=== PATIENT | male | born 1960 | race Hispanic/Latino ===

== ENCOUNTER → 2017-04-11 | Outpatient (CLI) | payer OTHER ==
--- NOTE | 2017-04-11 23:40 | Diagnostic Imaging Report ---
History:Sinus congestion Comparison studies: None Technique: Axial images were obtained through the maxillofacial region. Coronal and sagittal images reconstructed from the axial data. Intravenous contrast: None Findings: Soft tissues: No abnormalities. Bones: No fractures or bone abnormalities. Orbits: Globes: Intact Extra or intraconal abnormalities: None. Paranasal sinuses: Clear. The nasal septum is slightly deviated towards the left. IMPRESSION: 1. Clear paranasal sinuses. 2. The nasal septum is slightly deviated towards the left. 3. Otherwise, no maxillofacial abnormalities. Signed by: Dr. Bruno Dhaliwal M.D. on 04/11/2017 11:37 PM
== END ==
LOC: RAD 10:15
DX: J34.89 Other specified disorders of nose and nasal sinuses (principal)
CPT/HCPCS: 70486

== ENCOUNTER → 2017-04-20 | Outpatient (CLI) | payer OTHER ==
--- NOTE | 2017-05-02 01:15 | Polysomnography ---
DATE OF STUDY: April 20, 2017 DIAGNOSTIC POLYSOMNOGRAM REFERRING PHYSICIAN: Dr. Natan Perla MD HISTORY: This is a 57-year-old gentleman with difficulty breathing at night, especially through his nose. Patient has insomnia that is bothersome. Patient with past medical history of nasal fractures, nasal septal deviation, and hypertrophic nasal turbinates with sinusitis, and history of urinary retention. CURRENT MEDICATIONS: None listed. BMI is 25.3. Sperry sleepiness scale score 13. The patient presents for a diagnostic polysomnogram. Prior to initiation of this study, the patient was observed to be quite anxious and he began to shake, and tears were noted in his eyes. Polysomnogram revealed total sleep time of 251 minutes with sleep efficiency of 57.8%. Sleep onset latency was achieved in 7 minutes and REM latency in 114 minutes. All sleep stages were noted. Stage N1 36.9%, N2 28.7%, N3 28.1%, REM 6.4% of total sleep time. Intermittent snoring was noted. A total of 2 hypopneas and 5 obstructive apneas were noted for apnea-hypopnea index of 1.7 events per hour. The lowest oxygen saturation on this night was 92%. Patient slept in supine position for 65.9% of this night and appeared to sleep on his back in REM sleep for 2 minutes with the majority of the REM sleep being in the side position. A total of 23 periodic limb movements in sleep were noted for periodic limb movement index of 5.5 events per hour. Single-lead EKG analysis showed sinus rhythm and was otherwise unremarkable. Of note, patient had 2 prolonged wakefulness periods on this night with a 50 minute awakening at 10:30 p.m. and a 90-minute awakening at 2:28 a.m. These awakening periods were not clearly provoked by any particular event although the patient did go to the restroom before one of the awakenings. INTERPRETATION: This is an abnormal polysomnogram due to the presence of: 1. Intermittent snoring. Multiple factors such as thyroid disease and structural/obstructive abnormalities in the upper airway can be contributory. Evaluation and management of these factors may be helpful. The patient does not require CPAP therapy. An ENT examination may be helpful if snoring persists and creates significant lifestyle difficulties. Of note the patient is already under the care of ENT expert, Dr. Perla. 2. Altered sleep architecture. Patient had decreased sleep efficiency and increased wakefulness after sleep onset on this night. These findings could be from conditions such as "first night effect", medications, or other conditions that may need clinical correlation. Sleep hygiene should be optimized and relaxation therapies may be incorporated as needed. Sedative hypnotics can be given in the appropriate clinical circumstance. Mele Joshi M.D. JERONIMO Certified in Sleep Medicine Job#: [id number] DR FORTE
== END ==
LOC: SLEEP 20:08
DX: G47.33 Obstructive sleep apnea (adult) (pediatric) (principal)
CPT/HCPCS: 95810

== ENCOUNTER → 2023-10-18 | Outpatient (REF) | payer MEDICARE | LOC: RAD 12:26 | PROVIDERS: ATTEND Internal Medicine | DX: M54.50 Low back pain, unspecified (principal) | CPT/HCPCS: 72110 ==